=== PATIENT | female | born 1940 | race Caucasian/White ===

== ENCOUNTER 2022-09-05 15:44 | Inpatient (IN) ==
[2022-09-05] MEDS ORDERED: Naloxone 0.4 MG/ML INJ IVP PRN (20:05)
[2022-09-05] MEDS ORDERED: Acetaminophen 325 MG TABLET PO PRN (20:05)
[2022-09-05] MEDS ORDERED: Ondansetron 4 MG/2 ML VIAL IVP PRN (20:05)
[2022-09-05] MEDS: *HR* HYDROcodone/Acet 5/325 mg TABLET PO PRN (20:37)
[2022-09-05 22:33] LABS: Adenovirus Not Detected (Not Detect); Bordetella Pertussis Not Detected (Not Detect); Chlamydophila pneumoniae Not Detected (Not Detect); Coronavirus 229E Not Detected (Not Detect); Coronavirus HKU1 Not Detected (Not Detect); Coronavirus NL63 Not Detected (Not Detect); Coronavirus OC43 Not Detected (Not Detect); Human Metapneumovirus Not Detected (Not Detect); Human Rhinovirus/Enterovirus Not Detected (Not Detect); Influenza A Subtype 2009 H1 Not Detected (Not Detect); Influenza B Not Detected (Not Detect); Mycoplasma pneumoniae Not Detected (Not Detect); Parainfluenza Virus 1 Not Detected (Not Detect); Parainfluenza Virus 2 Not Detected (Not Detect); Parainfluenza Virus 3 Not Detected (Not Detect); Parainfluenza Virus 4 Not Detected (Not Detect); Respiratory Syncytial Virus Not Detected (Not Detect); SARS-CoV-2 Not Detected (Not Detect)
[2022-09-06] MEDS ORDERED: Dextrose Gel 15 GM/37.5 ML TUBE PO PRN ×2 (00:16)
[2022-09-06] MEDS ORDERED: D5% in Water 1,000 ML IVC PRN (00:16)
[2022-09-06] MEDS ORDERED: *HR* Dextrose 50 % in Water (Syg) 50 ML SYRINGE IVP PRN (00:16)
[2022-09-06] MEDS: Ipratropium/Albuterol Neb 3 ML IH SCH ×4 (04:41→21:59)
[2022-09-06] MEDS ORDERED: Ketorolac 30 MG/ML VIAL IVP ONE (10:40)
[2022-09-06] MEDS ORDERED: *HR* Promethazine 25 MG/ML VIAL IM ONE (10:50)
[2022-09-06] MEDS ORDERED: Ringers Solution, Lactated 1,000 ML IVC SCH (11:00)
[2022-09-06] MEDS ORDERED: Ketorolac 30 MG/ML VIAL IM ONE (13:06)
[2022-09-06] MEDS: Chlorhexidine Rinse 15 ML MOUTHWASH MM SCH ×2 (13:08→20:22)
[2022-09-06] MEDS: Sennosides/Docusate Sodium TABLET PO SCH ×2 (13:09→20:22)
[2022-09-06] MEDS: Multivit/Ca/Min/Fe/FA 1 TAB TABLET PO SCH (13:09)
[2022-09-06] MEDS: levoFLOXacin 750 MG/150 ML 750 MG/150 ML BAG IVPB SCH (13:09)
[2022-09-06] MEDS: polyethylene glycoL 3350 17 GM POWD.PACK PO SCH (13:09)
[2022-09-06] MEDS ORDERED: 0.9 % Sodium Chloride 1,000 ML ONE (13:58)
[2022-09-06] MEDS: Pantoprazole 40 MG VIAL IVP SCH ×2 (14:34→20:21)
[2022-09-06] MEDS: 0.9 % Sodium Chloride 1,000 ML IVC SCH ×2 (14:35→20:22)
[2022-09-06 14:56] LABS: Basophils # 0.1 K/mcL (0.0-0.2); Basophils % 0.3 %; Hematocrit 42.5 % (35.3-44.9); Hemoglobin 14.2 g/dL (11.5-15.4); Immature Granulocytes % 0.8 % (0-4); Lymphocytes # 0.9 K/mcL (0.6-4.6); Lymphocytes % 3.7 %; Mean Corpuscular HGB Conc 33.4 g/dL (31.6-35.5); Mean Corpuscular Hemoglobin 31.6 pg (28.0-33.3); Mean Corpuscular Volume 94.7 fL (83.0-100.0); Mean Platelet Volume 9.7 fL (9.4-12.4); Monocytes # 2.4 K/mcL (0.0-1.3); Neutrophils # 20.5 K/mcL (1.6-8.9); Platelet Count 284 K/mcL (140-400); Red Blood Count 4.49 M/mcL (3.82-4.97); Red Cell Distribution Width 13.2 % (11.5-14.5); Segmented Neutrophils % 85.2 %; White Blood Count 24.1 K/mcL (4.3-11.1)
[2022-09-06 15:06] LABS: INR 1.3; Prothrombin Time 14.8 Seconds (9.4-12.1)
[2022-09-06 15:09] LABS: Activated Partial Thrombo Time 27.1 Seconds (26.0-36.0)
[2022-09-06 15:37] LABS: Albumin 3.2 g/dL (3.5-5.7); Bilirubin,Total 1.5 mg/dL (0.3-1.0); Calcium 8.8 mg/dL (8.6-10.3); Globulin 3.2 g/dL (2.4-3.5); Magnesium 1.7 mg/dL (1.6-2.6); Phosphorous 2.4 mg/dL (2.7-4.5); Potassium 3.6 mEq/L (3.5-5.1); Total Protein 6.4 g/dL (6.4-8.9); Troponin I 0.11 ng/mL (< 0.04)
[2022-09-06] MEDS: Acetaminophen IV 1,000 MG/100 ML BAG IVPB SCH ×2 (19:04→21:37)
[2022-09-06] MEDS: *HR* HYDROcodone/Acet 5/325 mg TABLET PO PRN (22:24)
[2022-09-07 02:44] LABS: Magnesium 1.6 mg/dL (1.6-2.6); Potassium 3.8 mEq/L (3.5-5.1); Troponin I 0.03 ng/mL (< 0.04)
[2022-09-07 02:50] LABS: Basophils # 0.1 K/mcL (0.0-0.2); Basophils % 0.3 %; Eosinophils % 0.2 %; Hematocrit 36.7 % (35.3-44.9); Immature Granulocytes % 0.7 % (0-4); Lymphocytes # 1.5 K/mcL (0.6-4.6); Lymphocytes % 7.9 %; Mean Corpuscular Hemoglobin 31.6 pg (28.0-33.3); Mean Corpuscular Volume 95.8 fL (83.0-100.0); Mean Platelet Volume 9.7 fL (9.4-12.4); Monocytes % 10.8 %; Neutrophils # 14.6 K/mcL (1.6-8.9); Platelet Count 247 K/mcL (140-400); Red Blood Count 3.83 M/mcL (3.82-4.97); Red Cell Distribution Width 13.6 % (11.5-14.5); Segmented Neutrophils % 80.1 %; White Blood Count 18.3 K/mcL (4.3-11.1)
[2022-09-07 02:53] LABS: Hemoglobin 12.1 g/dL (11.5-15.4)
[2022-09-07] MEDS: Ipratropium/Albuterol Neb 3 ML IH SCH ×4 (03:46→22:36)
[2022-09-07] MEDS: Acetaminophen IV 1,000 MG/100 ML BAG IVPB SCH (04:01)
[2022-09-07 04:28] LABS: Estimated Average Glucose 180 mg/dl; Hemoglobin A1C 7.9 %
[2022-09-07] MEDS: *HR* OxyCODONE Immed Rel 5 MG TABLET PO PRN ×2 (04:54→16:09)
[2022-09-07] MEDS: Pantoprazole 40 MG VIAL IVP SCH (04:55)
[2022-09-07] MEDS: Sennosides/Docusate Sodium TABLET PO SCH ×2 (09:49→21:25)
[2022-09-07] MEDS: Chlorhexidine Rinse 15 ML MOUTHWASH MM SCH ×2 (09:49→21:25)
[2022-09-07] MEDS: Multivit/Ca/Min/Fe/FA 1 TAB TABLET PO SCH (09:50)
[2022-09-07] MEDS: levoFLOXacin 750 MG/150 ML 750 MG/150 ML BAG IVPB SCH (09:50)
[2022-09-07] MEDS: polyethylene glycoL 3350 17 GM POWD.PACK PO SCH (09:50)
[2022-09-07] MEDS: Melatonin 3 MG TABLET PO PRN (21:25)
[2022-09-08] MEDS: Ipratropium/Albuterol Neb 3 ML IH SCH ×4 (03:25→22:31)
[2022-09-08 03:54] LABS: Basophils % 0.3 %; Eosinophils # 0.3 K/mcL (0.0-0.6); Eosinophils % 2.3 %; Hematocrit 37.1 % (35.3-44.9); Hemoglobin 12.2 g/dL (11.5-15.4); Immature Granulocytes % 0.8 % (0-4); Lymphocytes # 1.9 K/mcL (0.6-4.6); Lymphocytes % 14.6 %; Mean Corpuscular HGB Conc 32.9 g/dL (31.6-35.5); Mean Corpuscular Volume 94.4 fL (83.0-100.0); Mean Platelet Volume 9.5 fL (9.4-12.4); Monocytes # 1.1 K/mcL (0.0-1.3); Monocytes % 8.9 %; Neutrophils # 9.3 K/mcL (1.6-8.9); Platelet Count 243 K/mcL (140-400); Red Blood Count 3.93 M/mcL (3.82-4.97); Red Cell Distribution Width 13.2 % (11.5-14.5); Segmented Neutrophils % 73.1 %; White Blood Count 12.8 K/mcL (4.3-11.1)
[2022-09-08 04:15] LABS: Calcium 8.5 mg/dL (8.6-10.3); Magnesium 1.6 mg/dL (1.6-2.6); Potassium 3.8 mEq/L (3.5-5.1)
[2022-09-08] MEDS: Chlorhexidine Rinse 15 ML MOUTHWASH MM SCH ×2 (08:50→21:53)
[2022-09-08] MEDS: Sennosides/Docusate Sodium TABLET PO SCH ×2 (08:50→21:53)
[2022-09-08] MEDS: polyethylene glycoL 3350 17 GM POWD.PACK PO SCH (08:50)
[2022-09-08] MEDS: Multivit/Ca/Min/Fe/FA 1 TAB TABLET PO SCH (08:50)
[2022-09-08] MEDS: levoFLOXacin 750 MG/150 ML 750 MG/150 ML BAG IVPB SCH (08:50)
[2022-09-08] MEDS: *HR* OxyCODONE Immed Rel 5 MG TABLET PO PRN ×2 (09:03→17:49)
[2022-09-08] MEDS: Melatonin 3 MG TABLET PO PRN (21:53)
[2022-09-09] MEDS: *HR* OxyCODONE Immed Rel 5 MG TABLET PO PRN ×2 (03:09→10:04)
[2022-09-09] MEDS: Ipratropium/Albuterol Neb 3 ML IH SCH ×3 (04:49→16:45)
[2022-09-09 06:54] VITALS: TEMP 98.7
[2022-09-09] MEDS: levoFLOXacin 750 MG/150 ML 750 MG/150 ML BAG IVPB SCH (08:47)
[2022-09-09] MEDS: polyethylene glycoL 3350 17 GM POWD.PACK PO SCH (08:48)
[2022-09-09] MEDS: Multivit/Ca/Min/Fe/FA 1 TAB TABLET PO SCH (08:48)
[2022-09-09] MEDS: Chlorhexidine Rinse 15 ML MOUTHWASH MM SCH ×2 (08:48→20:45)
[2022-09-09] MEDS: Sennosides/Docusate Sodium TABLET PO SCH ×2 (08:48→20:45)
[2022-09-09 10:34] LABS: Basophils # 0.1 K/mcL (0.0-0.2); Basophils % 0.8 %; Eosinophils # 0.3 K/mcL (0.0-0.6); Eosinophils % 3.6 %; Hematocrit 35.7 % (35.3-44.9); Immature Granulocytes % 2.4 % (0-4); Lymphocytes # 1.5 K/mcL (0.6-4.6); Mean Corpuscular HGB Conc 33.6 g/dL (31.6-35.5); Mean Corpuscular Hemoglobin 31.5 pg (28.0-33.3); Mean Corpuscular Volume 93.7 fL (83.0-100.0); Monocytes # 0.9 K/mcL (0.0-1.3); Monocytes % 10.7 %; Neutrophils # 5.8 K/mcL (1.6-8.9); Platelet Count 260 K/mcL (140-400); Red Blood Count 3.81 M/mcL (3.82-4.97); Red Cell Distribution Width 13.2 % (11.5-14.5); Segmented Neutrophils % 65.5 %; White Blood Count 8.8 K/mcL (4.3-11.1)
[2022-09-09] MEDS ORDERED: Regadenoson 0.4 MG/5 ML SYRINGE IVP ONE (10:54)
[2022-09-09 10:56] LABS: Calcium 8.5 mg/dL (8.6-10.3); Potassium 3.7 mEq/L (3.5-5.1)
[2022-09-09 16:03] VITALS: BP 147/64; PULSE 88; O2SAT 94
[2022-09-09] MEDS: *HR* HYDROcodone/Acet 5/325 mg TABLET PO PRN (20:52)
[2022-09-09] MEDS: Melatonin 3 MG TABLET PO PRN (20:52)
== END 2022-09-09 23:59 | disposition short-term general hospital (02) | DRG 871 ==
LOC: 4WAOSI → SUATTDRO 18:37 → 2NNU 09-06 20:00 → 4WAOSI 09-08 09:46
PROVIDERS: ADMIT Internal Medicine; ATTEND Family Medicine